=== PATIENT | female | born 1990 | race Caucasian/White ===

== ENCOUNTER 2017-06-15 19:10 | Outpatient (CLI) | payer OTHER ==
[~2017-06-15] VITALS: Ht 157.5 cm; Wt 72.3 kg
[~2017-06-15 19:10] MED LIST: PREN1TAB49 PO
[2017-06-15 19:15] VITALS: Ht 157.5 cm; Wt 72.3 kg
[2017-06-15 19:35] VITALS: BP 122/77; PULSE 96; RESP 18
--- NOTE | 2017-06-15 22:04 | TRIAGE ---
OB Triage Datetime Report Generated by CPN: 06/15/2017 22:03 Datetime: 06/15/2017 21:56 Stage of : OB Triage Datetime: 06/15/2017 21:44 Comments: MONITOR TURNED OFF. PT TO GET DRESSED AND WAIT FOR DISCHARGE DOCUMENTS. Datetime: 06/15/2017 21:36 Pain Assessment Pain Scale: 3 Pain Presence: Intermittent Pain Type: Contraction Pain Location: Abdomen; Back Pain Goal: 2 Pain Relief Measures: Comfort Measures Vaginal Exam Dilatation (cms): 3.5 Effacement (%): 60 Station: -2 Datetime: 06/15/2017 20:50 Stage of : OB Triage Pain Assessment Pain Scale: 0 Pain Presence: None/Denies Pain Type: N/A Pain Goal: 2 Pain Assessment Comments: PT DENIES FEELING PAIN AT THIS TIME. Datetime: 06/15/2017 19:49 Labor Evaluation Frequency: 1.5-3 Monitor Mode: External Duration (sec)2399: 40-60 Quality: Mild Pattern: Normal: <= 5 Contractions in 10 Minutes Resting Tone Stephan: Relaxed Heart Rate FHR Baseline Rate: 145 Monitor Mode: External US Variability: Moderate 6-25 bpm Accelerations: 15X15 Decelerations: None Category: Category I Datetime: 06/15/2017 19:34 Monitor Mode: External Monitor Mode: External US Comments: MONITORS APPLIED Pain Assessment Pain Scale: 5 Pain Presence: Intermittent Pain Type: Contraction Pain Location: Abdomen; Back Pain Goal: 2 Pain Relief Measures: Comfort Measures Vaginal Exam Dilatation (cms): 3.5 Effacement (%): 60 Station: -2 Vaginal Bleeding: None Cervix, Consistency: Soft Cervix, Position: Midposition Datetime: 06/15/2017 19:24 Stage of : OB Triage Assessment Type: Triage Maternal Assessment Level of Consciousness: Fully Conscious DTR's/Clonus: DTRs 2+; No Clonus Headache: Denies Blurred Vision: No Respiratory Effort: Unlabored; Regular Rhythm; Equal Expansion Breath Sounds, Left: Clear and Equal Breath Sounds, Right: Clear and Equal Nausea/Vomiting: Denies RUQ Epigastric Pain: Denies Temperature Route: Oral Datetime: 06/15/2017 19:18 EGA: 38.3 Datetime: 06/15/2017 19:17 Time of Arrival: 06/15/2017 19:10 Arrived By: Ambulatory Arrived From: Home Chief Complaint: CONTRACTIONS Movement: Present Contractions: Irregular Time Contractions Began: 06/15/2017 16:00 Rupture of Membranes: Denies Vaginal Bleeding: None Vaginal Discharge: Present Recent Sexual Intercouse: Denies Abdominal Trauma: Not Applicable Patient Complaints: Contractions Time Provider Notified: 06/15/2017 19:48 Provider Notified: FRANCISCO J Initial Plan: PT TO AMBULATE FOR 2 HOURS
--- NOTE | 2017-06-15 22:30 | PN ---
Triage Information Date/Time 06/15/17 Weeks of Gestation 38w3d : 3 Para: 2 Diabetes: none Hypertention: none Additional information uc's with lower back pain since 1600 Objective Vital Signs Date Time Temp Pulse Resp B/P Pulse Ox O2 Delivery O2 Flow Rate FiO2 06/15/17 19:35 97.8 96 18 122/77 Room Air Heart Rate: 140's Contractions: < 5 Minutes Apart Exam VE 3-4/60%/-2 membrane intact re exam in 2hrs no change EFM frequent uc which is mild Assessment/Plan IUP 38w3d latent phase RTH prn with routine labor instructions CHRERI MARX MD Jun 15, 2017 22:30
== END 2017-06-15 21:58 | disposition home or self-care (01) ==
LOC: OBT 19:10 → L-D 19:11 → OBT 21:58
PROVIDERS: ATTEND Obstetrics & Gynecology
DX: O26.893 Other specified pregnancy related conditions, third trimester (principal); Z3A.38 38 weeks gestation of pregnancy; M54.5 Low back pain
CPT/HCPCS: G0463